=== PATIENT | female | born 1950 | race African-American/Black ===

== ENCOUNTER 2016-05-30 10:55 | Outpatient (CLI) | payer OTHER ==
[2016-05-30 11:51] LABS: Hemoglobin A1c 6.1 % (4.0-6.0)
== END 2016-05-30 10:56 | disposition home or self-care (01) ==
LOC: BURLAB 10:55
PROVIDERS: ATTEND Internal Medicine Geriatric Medicine
DX: E11.9 Type 2 diabetes mellitus without complications (principal)
CPT/HCPCS: 36415; 80061; 83036

== ENCOUNTER 2024-11-20 17:24 | Emergency (ER) | payer OTHER ==
[2024-11-20 18:07] LABS: #Basophils 0.1 thou/uL (0.0-0.2); #Eosinophils 0.0 thou/uL (0.0-0.7); #Lymphocytes 1.8 thou/uL (1.20-3.40); #Monocytes 0.8 thou/uL (0.11-0.59); #Neutrophils 3.8 thou/uL (1.40-6.50); %Basophils 1.1 % (0.0-1.0); %Eosinophils 0.6 % (0.0-10.0); %Lymphocytes 27.5 % (21.0-51.0); %Monocytes 12.5 % (0.0-10.0); %Neutrophils 58.3 % (42.0-75.0); Hematocrit 39.3 % (36.0-47.0); Hemoglobin 13.1 g/dL (12.0-16.0); Mean Corpuscular Hemoglobin 29.3 pg (27.0-31.0); Mean Corpuscular Volume 87.8 fl (78.0-98.0); Platelet Count 193 10x3/uL (130-400); Red Blood Cell (RBC) Count 4.48 mill/uL (4.20-5.40); White Blood Cell (WBC) Count 6.5 10x3/uL (4.8-10.8)
[2024-11-20 18:20] LABS: Bicarbonate (HCO3v) 22.2 mmol/L (22.0-28.0); CO2 Tension (PvCO2) 28.6 mmHg (42.0-51.0); Calcium, Ionized 1.24 mmol/L (1.15-1.33); Chloride 106 mmol/L (98-107); Hemoglobin - Calc 14.3 g/dL (12.0-16.0); Potassium 3.5 mmol/L (3.5-5.1); Sodium 142 mmol/L (138-145); T. Carbon Dioxide 23.0 mmol/L (22.0-28.0); vO2 Saturation-calc 59.9 % (60.0-85.0)
[2024-11-20 18:25] LABS: ALT (SGPT) 61 U/L (Less than 34); AST (SGOT) 67 U/L (11-34); Albumin 3.5 g/dL (3.1-4.5); Alkaline Phosphatase 124 U/L (40-110); Anion Gap 17 mmol/L (10-20); BUN (Urea Nitrogen) 13 mg/dL (9.8-20.1); Bilirubin, Total 0.6 mg/dL (0.3-1.2); Calc. Creatinine Clearance 0 mL/min (70-130); Calcium 10.2 mg/dL (7.8-10.44); Carbon Dioxide 20 mmol/L (23-31); Chloride 105 mmol/L (98-107); Globulin 6.1 g/dL (2.4-3.5); Glucose 103 mg/dL (83-110); Potassium 3.5 mmol/L (3.5-5.1); Sodium 138 mmol/L (136-145)
[2024-11-20 18:26] LABS: Troponin I Less than 0.010 ng/mL (< 0.028)
[2024-11-20] MEDS ORDERED: Famotidine/PF 20 mg/2ml Vial ONE (18:41)
[2024-11-20] MEDS ORDERED: diphenhydrAMINE 50 MG/ML VIAL ONE (18:41)
[2024-11-20] MEDS ORDERED: Oseltamivir 75 MG CAP ONE (18:41)
[2024-11-20] MEDS ORDERED: Famotidine 20 MG TAB ONE (18:46)
== END 2024-11-20 20:46 | disposition home or self-care (01) ==
LOC: BURERS 17:24
DX: U07.1 COVID-19 (principal); J10.1 Influenza due to other identified influenza virus with other respiratory manifestations; I10 Essential (primary) hypertension
CPT/HCPCS: 71046; 71275; 80053; 82330; 82435; 82803; 83880; 84132; 84295; 84484; 85014; 85025; 85379; 87400; 87426; 96374; 96375; J1010; J1200; J1308